=== PATIENT | male | born 1970 | race Caucasian/White ===

== ENCOUNTER → 2016-09-10 | Outpatient (CLI) | payer OTHER ==
--- NOTE | 2016-09-10 10:47 | RADIOLOGY REPORT (SQ) ---
EXAM DESCRIPTION: DUPLEX ART/KENDAL FLOW COMPLETE COMPLETED DATE/TIME: 09/10/2016 10:16 am REASON FOR STUDY: HTN I10 ESSENTIAL (PRIMARY) HYPERTENSION COMPARISON: None. TECHNIQUE: Realtime and static grayscale images acquired. Selected color Doppler, velocities and spe ctral images recorded. LIMITATIONS: Midline bowel gas. Unable to Doppler the renal artery origins off the aorta Large patient FINDINGS: RIGHT KIDNEY: RENAL ARTERY VELOCITIES: At the hilum, 56 cm/sec. Segmental artery velocity 66 cm/sec. RENAL VEIN: Color doppler flow present, patent. VELOCITY RATIO: 1.2. Normal waveforms. KIDNEY: Normal size. No significant pathology. LEFT KIDNEY: RENAL ARTERY VELOCITIES: At the hilum, 78 cm/sec. Segmental artery velocity 61 cm/sec. RENAL VEIN: Color doppler flow present, patent. VELOCITY RATIO: 1.7. Normal waveforms. KIDNEY: Normal size. No significant pathology. BLADDER: Normal. OTHER: No other significant finding. IMPRESSION: NO DOPPLER EVIDENCE OF HEMODYNAMICALLY SIGNIFICANT RENAL ARTERY STENOSIS. COMMENT: NORMAL RENAL ARTERY/AORTA VELOCITY RATIO IS LESS THAN OR EQUAL TO 3.5. TECHNICAL DOCUMENTATION: JOB ID: [id number] [email or web address] Rights [email or web address]
== END ==
LOC: RAD 08:35
PROVIDERS: ATTEND Internal Medicine
DX: I10 Essential (primary) hypertension (principal)
CPT/HCPCS: 93975